=== PATIENT | male | born 1985 | race Caucasian/White ===

== ENCOUNTER 2019-06-03 22:45 | Emergency (ER) | payer OTHER ==
[2019-06-03] MEDS ORDERED: KETOROLAC 30 MG/ML 1 ML VIAL IM STA (23:42)
[2019-06-03] MEDS ORDERED: Acetaminophen-Codeine 300-30mg TAB PO STA (23:42)
--- NOTE | 2019-06-03 23:45 | ED ---
Lower Extremity Injury HPI - General Chief Complaint: Extremity Injury, Lower Stated Complaint: Left Leg Injury Time Seen by Provider: 06/03/19 23:19 Source: patient Mode of arrival: ambulatory Limitations: no limitations - History of Present Illness Initial Comments: 37-year-old male patient presents to the emergency department today for evaluation of left calf pain. Patient states his playing softball went to return for he felt a "snapping" sensation in the left calf. Patient states shortly after he felt onset of pain. Patient states is very difficult for him to walk due to the pain. Denies any swelling. Denies any falls with this. Denies any history of injury to the calf. Denies any recent long car rides or history of blood clot. Patient denies any headache, neck pain, back pain, chest pain, shortness of breath, dizziness, weakness, abdominal pain, nausea, vomiting, or difficulties with bowel movements or urination. - Related Data Previous Rx's Medication Instructions Recorded Ibuprofen [Motrin] 600 mg PO Q8HR PRN #30 tab 06/03/19 Allergies Allergy/AdvReac Type Severity Reaction Status Date / Time No Known Allergies Allergy Verified 06/03/19 22:53 Review of Systems ROS Statement: Those systems with pertinent positive or pertinent negative responses have been documented in the HPI. ROS Other: All systems not noted in ROS Statement are negative. Past Medical History Past Medical History: No Reported History History of Any Multi-Drug Resistant Organisms: None Reported Additional Past Surgical History / Comment(s): saliva duct removed as a child. Past Psychological History: No Psychological Hx Reported Smoking Status: Never smoker Past Alcohol Use History: Occasional Past Drug Use History: Cocaine, Marijuana General Exam Limitations: no limitations General appearance: alert, in no apparent distress, other (Physical well- developed, well-nourished adult male patient in no acute distress. Vital signs upon presentation are temperature 99.5F, pulse 110, respirations 17, blood pressure 128/84, pulse ox 97% on room air.) Eye exam: Present: normal appearance, PERRL, EOMI. Absent: scleral icterus, conjunctival injection, periorbital swelling ENT exam: Present: normal exam, normal oropharynx, mucous membranes moist Respiratory exam: Present: normal lung sounds bilaterally. Absent: respiratory distress, wheezes, rales, rhonchi, stridor Cardiovascular Exam: Present: regular rate, normal rhythm, normal heart sounds. Absent: systolic murmur, diastolic murmur, rubs, gallop, clicks Extremities exam: Present: normal inspection, full ROM, tenderness (Tenderness noted to left), normal capillary refill, other (Skin to left calf is pink, warm, and dry. No swelling. No ecchymosis. Pedal and posttibial pulses are 2+ and equal bilaterally.). Absent: pedal edema, joint swelling, calf tenderness Neurological exam: Present: alert, oriented X3, CN II-XII intact Psychiatric exam: Present: normal affect, normal mood Skin exam: Present: warm, dry, intact, normal color. Absent: rash Course Vital Signs 06/03/19 06/03/19 22:48 23:56 Temperature 99.5 F 98 F Pulse Rate 110 H 66 Respiratory 17 18 Rate Blood Pressure 128/84 129/73 O2 Sat by Pulse 97 96 Oximetry Medical Decision Making - Medical Decision Making 37 year-old male patient presents the emergency department today for evaluation of left calf pain. Physical examination did reveal Tenderness to the left calf. Neurovascular status is intact. Patient symptoms are consistent with left calf muscle tear. He is educated regarding use of anti-inflammatories, ice, elevation. Is instructed to follow-up with orthopedics for further evaluation of pain symptoms persist. Return parameters were discussed in detail. He verbalizes understanding and agrees with this plan. Disposition Clinical Impression: Gastrocnemius muscle tear Disposition: HOME SELF-CARE Condition: Good Instructions (If sedation given, give patient instructions): Muscle Strain (ED) Additional Instructions: Rest the left leg. Apply ice 20 minutes at a time at least 4-5 times daily. Take medication as directed. Follow up with cleaning specialist for recheck as as possible. Follow up with your primary care for recheck in 1-2 days. Return to the emergency department immediately for any new, worsening, or concerning symptoms. Prescriptions: Ibuprofen [Motrin] 600 mg PO Q8HR PRN #30 tab PRN Reason: Pain Is patient prescribed a controlled substance at d/c from ED?: No Referrals: Main Galvan MD [Medical Doctor] - 1-2 days Cecilia Green MD [STAFF PHYSICIAN] - 1-2 days Time of Disposition: 23:44
[2019-06-03 23:57] VITALS: BP 129/73; PULSE 66; RESP 18; TEMP 98
== END 2019-06-04 00:04 | disposition home or self-care (01) ==
LOC: EC 22:45
DX: S86.812A Strain of other muscle(s) and tendon(s) at lower leg level, left leg, initial encounter (principal); X50.9XXA Other and unspecified overexertion or strenuous movements or postures, initial encounter; Y93.64 Activity, baseball
CPT/HCPCS: 99283; 96372; J1885